=== PATIENT | male | born 1970 | race Native Hawaiian/Other Pacific Islander ===

== ENCOUNTER 2022-02-19 09:08 | Outpatient (CLI) | payer BC, SELFPAY ==
[2022-02-19 14:12] LABS: Chloride* 102 mmol/L (96-114); Potassium* 4.7 mmol/L (3.6-5.1); Sodium* 137 mmol/L (135-149)
[2022-02-19 14:15] LABS: Blood Urea Nitrogen* 14 mg/dL (7-30); Carbon Dioxide* 32 mmol/L (20-32); Cholesterol* 207 mg/dL (90-199); Creatinine* 1.2 mg/dL (0.5-1.5); Estimated Glomerular Filt Rate 72.31
[2022-02-19 14:16] LABS: Calcium* 9.4 mg/dL (8.4-10.6); Glucose* 119 mg/dL (60-115); HDL Cholesterol* 52 mg/dL (>=40); LDL Cholesterol Calculated 132 mg/dL (<100); Triglycerides* 113 mg/dL (40-149)
[2022-02-19 14:47] LABS: PSA Screen* 1.38 ng/mL (0.10-4.00)
== END 2022-02-19 09:09 | disposition home or self-care (01) ==
PROVIDERS: PCP Emergency Medicine; Visit Provider Emergency Medicine
DX: Z00.00 Encounter for general adult medical examination without abnormal findings (principal); Z12.5 Encounter for screening for malignant neoplasm of prostate; Z13.1 Encounter for screening for diabetes mellitus; Z13.6 Encounter for screening for cardiovascular disorders
CPT/HCPCS: 80048; 80061; 84153